=== PATIENT | female | born 1975 | race Hispanic/Latino ===

== ENCOUNTER 2020-10-14 16:13 | Outpatient (CLI) | payer BC ==
[2020-10-15 06:59] LABS: SARS-CoV-2 PCR by NAA Not Detected (NotDetected)
== END 2020-10-14 16:14 | disposition home or self-care (01) ==
LOC: CSHLAB 16:13
PROVIDERS: ATTEND Internal Medicine Gastroenterology
DX: Z20.822 Contact with and (suspected) exposure to COVID-19 (principal); Z12.11 Encounter for screening for malignant neoplasm of colon
CPT/HCPCS: 87635; U0003; U0005

== ENCOUNTER 2020-10-17 07:28 | Day surgery (SDC) | payer BC ==
[2020-10-16 09:40] VITALS: BMI 28.1
[2020-10-17] MEDS ORDERED: Lidocaine 1% MPF 2 ML VIAL ONE (09:07)
== END 2020-10-17 12:00 | disposition home or self-care (01) ==
LOC: CSHSDC 07:28
PROVIDERS: ATTEND Internal Medicine Gastroenterology
PROC: 0DJD8ZZ Inspection of Lower Intestinal Tract, Via Natural or Artificial Opening Endoscopic (ICD-10-PCS; principal; 2020-10-17)
DX: R10.9 Unspecified abdominal pain (principal); K59.00 Constipation, unspecified; K57.30 Diverticulosis of large intestine without perforation or abscess without bleeding; F41.9 Anxiety disorder, unspecified; F32.9 Major depressive disorder, single episode, unspecified; D56.3 Thalassemia minor; Z90.49 Acquired absence of other specified parts of digestive tract